=== PATIENT | female | born 1975 | race American Indian/Alaskan Native ===

== ENCOUNTER 2018-12-28 07:02 | Emergency (ER) | payer OTHER ==
[2018-12-28 07:22] VITALS: BP 138/97
--- NOTE | 2018-12-28 09:41 | Emergency Department Report ---
HPI - General Chief Complaint: Upper Respiratory Infection Time Seen by Provider: 12/28/18 09:25 - HPI HPI: 43-year-old -Maldivian female presents to the emergency department with a 2 to three-day history of a mixed dry and productive cough, body aches, chills. She also previously had some diarrhea that has since resolved. She says that she got sick when she returned from her visit to [facility] and she also "gave it to Juon." She has a past medical history of sarcoidosis. She's taken some intu-ter-xlaujri medications for her symptoms without much relief that include Robitussin and Radha Alva. She is an occasional tobacco smoker. ED Past Medical Hx - Past Medical History Previous Medical History?: Yes Hx Headaches / Migraines: Yes Additional medical history: Sarcoidosis - Surgical History Hx Cholecystectomy: Yes - Social History Smoking Status: Current Some Day Smoker Substance Use Type: Alcohol - Medications Home Medications: Home Medications Medication Instructions Recorded Confirmed Last Taken Type Butalb/Acetaminophen/Caffeine 1 cap PO Q6HR PRN #24 cap 12/12/18 Unknown Rx [Fioricet 50-300-40 mg CAP] ALBUTEROL Inhaler (OR & NICU) 2 puff IH QID PRN #1 inhalation 12/28/18 Unknown Rx [ProAir HFA Inhaler] Fluticasone [Flonase] 1 spray NS QDAY #1 bottle 12/28/18 Unknown Rx Pseudoephedrine ER [Sudafed 12 Hr] 120 mg PO BID #10 tablet.er 12/28/18 Unknown Rx ED Review of Systems ROS: Stated complaint: FLU SYMPTOMS Other details as noted in HPI Constitutional: chills. denies: fever Eyes: denies: eye pain, vision change ENT: congestion. denies: ear pain Respiratory: cough. denies: shortness of breath Cardiovascular: denies: chest pain, edema Gastrointestinal: nausea, diarrhea. denies: abdominal pain Genitourinary: denies: dysuria, discharge Musculoskeletal: myalgia. denies: joint swelling Skin: denies: rash, lesions Neurological: denies: weakness, numbness Physical Exam - Physical Exam Vital Signs: Vital Signs 12/28/18 07:17 Temperature 98.2 F Pulse Rate 97 H Respiratory 17 Rate Blood Pressure 138/97 O2 Sat by Pulse 98 Oximetry Physical Exam: GENERAL: The patient is well-developed well-nourished. HEENT: Normocephalic. Atraumatic. Patient has moist mucous membranes. Oropharynx is clear. Boggy nasal mucosa. EYES: Extraocular motions are intact. Pupils are equal and reactive to light bilaterally. NECK: Supple. Trachea is midline. CHEST/LUNGS: Clear to auscultation. Occasional productive sounding cough is heard during examination. No tachypnea or accessory muscle use. There is no respiratory distress noted. HEART/CARDIOVASCULAR: Regular. There is no tachycardia. There is no obvious murmur. ABDOMEN: Abdomen is soft, nontender. Patient has normal bowel sounds. There is no abdominal distention. SKIN: Skin is warm and dry. NEURO: The patient is awake, alert, and oriented. The patient is cooperative. The patient has no focal neurologic deficits. The patient has normal speech. MUSCULOSKELETAL: There is no tenderness or deformity. There is no evidence of acute injury. ED Course Vital Signs 12/28/18 07:17 Temperature 98.2 F Pulse Rate 97 H Respiratory 17 Rate Blood Pressure 138/97 O2 Sat by Pulse 98 Oximetry ED Medical Decision Making - Lab Data Result diagrams: 12/28/18 09:39 12/28/18 09:39 - Radiology Data Radiology results: image reviewed interpreted by me: Chest x-ray does not show any pneumothorax, pleural effusion, pneumonia or obvious focal consolidation. - Medical Decision Making This patient presents with a few days of a cough and some body aches. She has some questionable history of sarcoidosis. Chest x-ray did not show any pneumonia, pleural effusions, pneumothorax, focal consolidation, or any other acute process. Patient's labs are unremarkable for her CBC and metabolic panel. She was given a DuoNeb breathing treatment with great relief. Vital signs stable including being afebrile. It is possible that the patient could have underlying influenza but she is out of the window for Tamiflu treatment. Patient will be treated with Sudafed, Flonase and an albuterol inhaler. She has been given referrals for primary care. She will return to the ER with any worsening of her symptoms or any acute distress. - Differential Diagnosis viral URI, sarcoidosis, pneumonia, influenza Critical Care Time: No Critical care attestation.: If time is entered above; I have spent that time in minutes in the direct care of this critically ill patient, excluding procedure time. ED Disposition Clinical Impression: Upper respiratory infection Qualifiers: URI type: unspecified URI Qualified Code(s): J06.9 - Acute upper respiratory infection, unspecified Disposition: DC- TO HOME OR SELFCARE Is pt being admited?: No Condition: Stable Instructions: Upper Respiratory Infection (ED) Additional Instructions: Please follow up with a primary care physician in a few days. Return to the emergency Department with any worsening of your symptoms or any acute distress. Prescriptions: ALBUTEROL Inhaler (OR & NICU) [ProAir HFA Inhaler] 2 puff IH QID PRN #1 inhala tion PRN Reason: Shortness Of Breath Fluticasone [Flonase] 1 spray NS QDAY #1 bottle Pseudoephedrine ER [Sudafed 12 Hr] 120 mg PO BID #10 tablet.er Referrals: DIANDRA SPAULDING MD [Staff Physician] - 2-3 Days JUAN DIEGO VELASQUEZ DO [Staff Physician] - 2-3 Days Forms: Work/School Release Form(ED) Time of Disposition: 10:55
--- NOTE | 2018-12-28 10:05 | XRay Report ---
CHEST 2 VIEWS INDICATION: Cough. COMPARISON: None similar at this institution. FINDINGS: PA and lateral chest radiographs demonstrate normal cardiomediastinal silhouette. Clear lungs. Slight lower thoracic spine degenerative spurring. Probable cholecystectomy clips. CONCLUSION: No acute chest process, as described. Thank you for the opportunity to participate in this patient's care.
[2018-12-28 10:07] LABS: BUN/Creatinine Ratio 12; Blood Urea Nitrogen 7 mg/dL (7-17); Calcium 9.4 mg/dL (8.4-10.2); Hemolysis Index 1
[2018-12-28 10:13] LABS: Basophils % (Auto) 0.6 % (0.0-1.8); Eosinophils % (Auto) 0.8 % (0.0-4.3); Hematocrit 43.4 % (30.3-42.9); Hemoglobin 14.5 gm/dl (10.1-14.3); Lymphocytes # (Auto) 2.4 K/mm3 (1.2-5.4); Lymphocytes % (Auto) 49.7 % (13.4-35.0); Mean Corpuscular HGB Conc 33 % (30-34); Mean Corpuscular Volume 88 fl (79-97); Monocytes # (Auto) 0.4 K/mm3 (0.0-0.8); Monocytes % (Auto) 7.5 % (0.0-7.3); Platelet Count 282 K/mm3 (140-440); Red Blood Count 4.97 M/mm3 (3.65-5.03); Red Cell Distribution Width 13.7 % (13.2-15.2)
[2018-12-28] MEDS ORDERED: DUONEB *Not for PRN Use IH ONE (10:14)
[2018-12-28] MEDS ORDERED: DECADRON PO ONE (10:52)
== END 2018-12-28 11:38 | disposition home or self-care (01) ==
LOC: ED 07:02
DX: J06.9 Acute upper respiratory infection, unspecified (principal); F17.200 Nicotine dependence, unspecified, uncomplicated; G43.909 Migraine, unspecified, not intractable, without status migrainosus; M79.10 Myalgia, unspecified site; Z90.49 Acquired absence of other specified parts of digestive tract
CPT/HCPCS: 36415; 71046; 80048; 85025; 94640; 99284; J8540

== ENCOUNTER 2019-02-21 19:27 | Emergency (ER) | payer OTHER ==
--- NOTE | 2019-02-21 19:35 | Emergency Department Report ---
Blank Doc - Documentation Documentation: This is a 43-year-old female that presents with acute on chronic headache. Dayton chandler stated has history of migrane headaches and symptoms are similar. Denies worst headache or thunderclap headache. exam: Neuro exam within normal limits. no facial drooping. no one sided weak ness. This initial assessment/diagnostic orders/clinical plan/treatment(s) is/are subject to change based on patient's health status, clinical progression and re- assessment by fellow clinical providers in the ED. Further treatment and workup at subsequent clinical providers discretion. Patient/guardians urged not to elope from the ED as their condition may be serious if not clinically assessed and managed. Initial orders include: 1- Patient sent to [facility] for further evaluation and treatment
[2019-02-21] MEDS ORDERED: NACL 0.9% 1000 ML 1,000 ML IV ONE (21:43)
[2019-02-21] MEDS ORDERED: REGLAN IV STA (21:43)
[2019-02-21] MEDS ORDERED: BENADRYL IV STA (21:43)
[2019-02-21] MEDS ORDERED: TORADOL IV STA (21:43)
--- NOTE | 2019-02-21 22:02 | Emergency Department Report ---
ED Headache HPI - General Chief Complaint: Headache Stated Complaint: GUTHRIE Time Seen by Provider: 02/21/19 19:34 - History of Present Illness Quality: mild Head Injury Location: parietal Recent Head Trauma: frequent headaches, chronic headaches Modifying Factors: improves with: exposure to light Associated Symptoms: denies: fatigue, fever/chills, flushing, nausea/vomiting, nasal congestion, nasal drainage, sinus infection, stiff neck, vision changes Allergies/Adverse Reactions: Allergies No Known Allergies Allergy (Unverified 12/12/18 14:08) Home Medications: Ambulatory Orders Butalb/Acetaminophen/Caffeine [Fioricet 50-300-40 mg CAP] 1 cap PO Q6HR PRN #24 cap 12/12/18 ALBUTEROL Inhaler (OR & NICU) [ProAir HFA Inhaler] 2 puff IH QID PRN #1 inhalation 12/28/18 Fluticasone [Flonase] 1 spray NS QDAY #1 bottle 12/28/18 Pseudoephedrine ER [Sudafed 12 Hr] 120 mg PO BID #10 tablet.er 12/28/18 Butalb/Acetamin/Caff 50-325-40 [Fioricet] 1 each PO Q6HR PRN #20 tablet 02/22/19 ED Review of Systems ROS: Stated complaint: GUTHRIE Other details as noted in HPI Constitutional: denies: chills, fever Eyes: denies: eye pain, eye discharge, vision change ENT: denies: ear pain, throat pain Respiratory: denies: cough, shortness of breath, wheezing Cardiovascular: denies: chest pain, palpitations Endocrine: no symptoms reported Gastrointestinal: denies: abdominal pain, nausea, diarrhea Genitourinary: denies: urgency, dysuria, discharge Musculoskeletal: denies: back pain, joint swelling, arthralgia Skin: denies: rash, lesions Neurological: denies: headache, weakness, paresthesias Psychiatric: denies: anxiety, depression Hematological/Lymphatic: denies: easy bleeding, easy bruising ED Past Medical Hx - Past Medical History Previous Medical History?: Yes Hx Headaches / Migraines: Yes Additional medical history: Sarcoidosis - Surgical History Past Surgical History?: Yes Hx Cholecystectomy: Yes - Social History Smoking Status: Current Every Day Smoker Substance Use Type: Alcohol - Medications Home Medications: Home Medications Medication Instructions Recorded Confirmed Last Taken Type Butalb/Acetaminophen/Caffeine 1 cap PO Q6HR PRN #24 cap 12/12/18 Unknown Rx [Fioricet 50-300-40 mg CAP] ALBUTEROL Inhaler (OR & NICU) 2 puff IH QID PRN #1 inhalation 12/28/18 Unknown Rx [ProAir HFA Inhaler] Fluticasone [Flonase] 1 spray NS QDAY #1 bottle 12/28/18 Unknown Rx Pseudoephedrine ER [Sudafed 12 Hr] 120 mg PO BID #10 tablet.er 12/28/18 Unknown Rx Butalb/Acetamin/Caff 50-325-40 1 each PO Q6HR PRN #20 tablet 02/22/19 Unknown Rx [Fioricet] ED Physical Exam - General Limitations: No Limitations General appearance: alert, in no apparent distress - Head Head exam: Present: atraumatic, normocephalic - Eye Eye exam: Present: normal appearance, PERRL, EOMI, other (negative funduscopic examination). Absent: conjunctival injection, nystagmus, periorbital swelling Pupils: Present: normal accommodation - ENT ENT exam: Present: mucous membranes moist - Neck Neck exam: Present: normal inspection - Respiratory Respiratory exam: Present: normal lung sounds bilaterally. Absent: respiratory distress - Cardiovascular Cardiovascular Exam: Present: regular rate, normal rhythm. Absent: systolic murmur, diastolic murmur, rubs, gallop - GI/Abdominal GI/Abdominal exam: Present: soft, normal bowel sounds - Extremities Exam Extremities exam: Present: normal inspection - Back Exam Back exam: Present: normal inspection - Neurological Exam Neurological exam: Present: alert, oriented X3 - Psychiatric Psychiatric exam: Present: normal affect, normal mood - Skin Skin exam: Present: warm, dry, intact, normal color. Absent: rash ED Course Vital Signs 02/21/19 19:34 Temperature 98.8 F Pulse Rate 85 Respiratory 18 Rate Blood Pressure 139/93 O2 Sat by Pulse 100 Oximetry Critical care attestation.: If time is entered above; I have spent that time in minutes in the direct care of this critically ill patient, excluding procedure time. ED Disposition Clinical Impression: Cephalgia Disposition: - TO HOME OR SELFCARE Is pt being admited?: No Does the pt Need Aspirin: No Condition: Stable Instructions: Migraine Headache (ED), Acute Headache (ED) Prescriptions: Butalb/Acetamin/Caff 50-325-40 [Fioricet] 1 each PO Q6HR PRN #20 tablet PRN Reason: Headache Referrals: ANGEL LEY MD [Primary Care Provider] - 3-5 Days
[2019-02-22 00:28] VITALS: BP 131/68
== END 2019-02-22 00:26 | disposition home or self-care (01) ==
LOC: ED 19:27
DX: G43.909 Migraine, unspecified, not intractable, without status migrainosus (principal); F17.200 Nicotine dependence, unspecified, uncomplicated
CPT/HCPCS: 96374; 96375; 99283; J1200; J1885; J2765; J7030

== ENCOUNTER 2019-05-16 08:08 | Emergency (ER) | payer OTHER ==
[2019-05-16 08:17] VITALS: BP 158/88
[2019-05-16 08:43] LABS: Basophils % (Auto) 0.5 % (0.0-1.8); Eosinophils # (Auto) 0.1 K/mm3 (0.0-0.4); Eosinophils % (Auto) 1.1 % (0.0-4.3); Hematocrit 38.5 % (30.3-42.9); Hemoglobin 12.7 gm/dl (10.1-14.3); Lymphocytes # (Auto) 3.3 K/mm3 (1.2-5.4); Lymphocytes % (Auto) 48.7 % (13.4-35.0); Mean Corpuscular HGB Conc 33 % (30-34); Mean Corpuscular Volume 87 fl (79-97); Monocytes # (Auto) 0.3 K/mm3 (0.0-0.8); Monocytes % (Auto) 4.6 % (0.0-7.3); Platelet Count 292 K/mm3 (140-440); Red Blood Count 4.42 M/mm3 (3.65-5.03); Red Cell Distribution Width 14.3 % (13.2-15.2)
[2019-05-16 09:06] LABS: Alanine Aminotransferase 22 units/L (7-56); Albumin 3.9 g/dL (3.9-5); BUN/Creatinine Ratio 11; Blood Urea Nitrogen 8 mg/dL (7-17); Hemolysis Index 7
[2019-05-16] MEDS ORDERED: ZOFRAN ODT PO ONE (09:14)
--- NOTE | 2019-05-16 09:16 | Emergency Department Report ---
ED Headache HPI - General Chief Complaint: Headache Stated Complaint: HEADACHE Time Seen by Provider: 05/16/19 08:45 - History of Present Illness Initial Comments: This is a 43-year-old female with a history of migraine headaches 2 years who presents to ED complaining of some peripheral and frontal localize, throughout., 6 out of 10 intensity pain 3 days. Patient states that she just moved here from [place] and was taking Topamax for her headaches. She denies any trauma, injuries, fall, fever, blurred vision, vomiting or dizziness. Allergies/Adverse Reactions: Allergies No Known Allergies Allergy (Unverified 12/12/18 14:08) Home Medications: Ambulatory Orders Butalb/Acetaminophen/Caffeine [Fioricet 50-300-40 mg CAP] 1 cap PO Q6HR PRN #24 cap 12/12/18 ALBUTEROL Inhaler (OR & NICU) [ProAir HFA Inhaler] 2 puff IH QID PRN #1 inhalation 12/28/18 Fluticasone [Flonase] 1 spray NS QDAY #1 bottle 12/28/18 Pseudoephedrine ER [Sudafed 12 Hr] 120 mg PO BID #10 tablet.er 12/28/18 Butalb/Acetamin/Caff 50-325-40 [Fioricet] 1 each PO Q6HR PRN #20 tablet 02/22/19 Prochlorperazine [Compazine] 10 mg PO Q8HR #20 tablet 05/16/19 ED Review of Systems ROS: Stated complaint: HEADACHE Other details as noted in HPI Comment: All other systems reviewed and negative ED Past Medical Hx - Past Medical History Previous Medical History?: Yes Hx Headaches / Migraines: Yes Additional medical history: Sarcoidosis - Surgical History Past Surgical History?: Yes Hx Cholecystectomy: Yes Additional Surgical History: D&C - Social History Smoking Status: Current Every Day Smoker Substance Use Type: Alcohol, Marijuana - Medications Home Medications: Home Medications Medication Instructions Recorded Confirmed Last Taken Type Butalb/Acetaminophen/Caffeine 1 cap PO Q6HR PRN #24 cap 12/12/18 Unknown Rx [Fioricet 50-300-40 mg CAP] ALBUTEROL Inhaler (OR & NICU) 2 puff IH QID PRN #1 inhalation 12/28/18 Unknown Rx [ProAir HFA Inhaler] Fluticasone [Flonase] 1 spray NS QDAY #1 bottle 12/28/18 Unknown Rx Pseudoephedrine ER [Sudafed 12 Hr] 120 mg PO BID #10 tablet.er 12/28/18 Unknown Rx Butalb/Acetamin/Caff 50-325-40 1 each PO Q6HR PRN #20 tablet 02/22/19 Unknown Rx [Fioricet] Prochlorperazine [Compazine] 10 mg PO Q8HR #20 tablet 05/16/19 Unknown Rx ED Physical Exam - General Limitations: No Limitations General appearance: alert, in no apparent distress - Head Head exam: Present: atraumatic, normocephalic - Eye Eye exam: Present: normal appearance - ENT ENT exam: Present: mucous membranes moist - Neck Neck exam: Present: normal inspection - Respiratory Respiratory exam: Present: normal lung sounds bilaterally. Absent: respiratory distress - Cardiovascular Cardiovascular Exam: Present: regular rate, normal rhythm. Absent: systolic murmur, diastolic murmur, rubs, gallop - GI/Abdominal GI/Abdominal exam: Present: soft, normal bowel sounds - Extremities Exam Extremities exam: Present: normal inspection - Back Exam Back exam: Present: normal inspection - Neurological Exam Neurological exam: Present: alert, oriented X3, CN II-XII intact, normal gait - Expanded Neurological Exam Expanded Patient oriented to: Present: person, place, time Speech: Present: fluid speech Cerebellar function: Finger to Nose: Normal Best Eye Response (Farrar): (4) open spontaneously Best Motor Response (Farrar): (6) obeys commands Best Verbal Response (Catherine): (5) oriented Catherine Total: 15 - Psychiatric Psychiatric exam: Present: normal affect, normal mood - Skin Skin exam: Present: warm, dry, intact, normal color. Absent: rash ED Course Vital Signs 05/16/19 08:14 Temperature 98.6 F Pulse Rate 88 Respiratory 18 Rate Blood Pressure 158/88 O2 Sat by Pulse 99 Oximetry ED Medical Decision Making - Lab Data Result diagrams: 05/16/19 08:28 05/16/19 08:28 - Medical Decision Making This 43-year-old female presents to ED to migraine headache Patient has a two-year history of headaches. Patient states she used to take Topamax for headaches. Patient states she has been in [facility] for a year so she has not seen a primary care doctor for headaches. She moved from [place]. Patient has no neurological deficit. referrals given for neurology. Discussed with and or follow-up for management of chronic migraines. Vital signs are normal she is in acute distress his physician with instructions. Critical care attestation.: If time is entered above; I have spent that time in minutes in the direct care of this critically ill patient, excluding procedure time. ED Disposition Clinical Impression: Migraine headache with aura Disposition: TO HOME OR SELFCARE Is pt being admited?: No Does the pt Need Aspirin: No Condition: Stable Instructions: Migraine Headache (ED), Tension Headache (ED) Additional Instructions: Make sure to follow up with the primary care physician as discussed. Take all your medications as you've been prescribed. If you have any worsening symptoms or develop new symptoms please return to ED immediately. Prescriptions: Prochlorperazine [Compazine] 10 mg PO Q8HR #20 tablet Referrals: ANGEL LEY MD [Primary Care Provider] - 3-5 Days [facility] [Provider Group] - 3-5 Days [facility] [Provider Group] - 3-5 Days KARLA CHAIDEZ MD [Staff Physician] - 3-5 Days LASHON MCKINLEY MD [Referring] - 3-5 Days Forms: Accompanied Note, Work/School Release Form(ED) Time of Disposition: 09:59
[2019-05-16] MEDS ORDERED: COMPAZINE PO ONE (09:30)
== END 2019-05-16 10:15 | disposition home or self-care (01) ==
LOC: ED 08:08
DX: G43.009 Migraine without aura, not intractable, without status migrainosus (principal); F17.200 Nicotine dependence, unspecified, uncomplicated; F12.10 Cannabis abuse, uncomplicated; Z79.899 Other long term (current) drug therapy; Z90.49 Acquired absence of other specified parts of digestive tract
CPT/HCPCS: 36415; 80053; 85025; Q0162; Q0164

== ENCOUNTER 2019-08-09 13:45 | Emergency (ER) | payer OTHER ==
[2019-08-09 14:01] VITALS: BP 149/74
--- NOTE | 2019-08-09 14:01 | Event Note ---
ED Screening Note Date of service: 08/09/19 Time: 14:00 ED Screening Note: 43 y/o female comes for headache and muscle tension of her shoulder region. Recently received Flu vaccine. This initial assessment/diagnostic orders/clinical plan/treatment(s) is/are subject to change based on patients health status, clinical progression and re- assessment by fellow clinical providers in the ED. Further treatment and workup at subsequent clinical providers discretion. Patient/guardian urged not to elope from the ED as their condition may be serious if not clinically assessed and managed. Initial orders include:
[2019-08-09] MEDS ORDERED: diphenhydrAMINE 50 MG/ML VIAL IV ONE (15:33)
[2019-08-09] MEDS ORDERED: KETOROLAC 30 MG/1 ML INJ IV ONE (15:33)
[2019-08-09] MEDS ORDERED: SODIUM CHLORIDE 0.9% 1000 ML 1,000 ML IV ONE (15:33)
[2019-08-09] MEDS ORDERED: METOCLOPRAMIDE 10 MG/2 ML INJ IV ONE (15:33)
--- NOTE | 2019-08-09 15:33 | Emergency Department Report ---
ED Headache HPI - General Chief Complaint: Headache Stated Complaint: HEADACHE/SHOULDER/NECK PAIN Time Seen by Provider: 08/09/19 13:59 Source: patient Exam Limitations: no limitations - History of Present Illness Initial Comments: Patient reports migraine that was triggered after she got the influenza vaccination three days ago. She denies any recent head trauma, nasal discharge, neck stiffness, sick contact, fever, closed spaces or thunderclap Timing/Duration: waxing and waning Quality: moderate, throbbing Head Injury Location: global Recent Head Trauma: no recent headache/trauma, occasional headaches Modifying Factors: improves with: rest. worse with: exposure to light, immobilization, movement Associated Symptoms: denies symptoms. denies: confusion, fatigue, facial pain, fever/chills, flushing, loss of consciousness, nausea/vomiting, nasal congestion, nasal drainage, numbness in legs/feet, rash, seizures, sinus infection, stiff neck, vision changes, weakness Allergies/Adverse Reactions: Allergies No Known Allergies Allergy (Unverified 12/12/18 14:08) Home Medications: Ambulatory Orders Butalb/Acetaminophen/Caffeine [Fioricet 50-300-40 mg CAP] 1 cap PO Q6HR PRN #24 cap 12/12/18 ALBUTEROL Inhaler (OR & NICU) [ProAir HFA Inhaler] 2 puff IH QID PRN #1 inhalation 12/28/18 Fluticasone [Flonase] 1 spray NS QDAY #1 bottle 12/28/18 Pseudoephedrine ER [Sudafed 12 Hr] 120 mg PO BID #10 tablet.er 12/28/18 Butalb/Acetamin/Caff 50-325-40 [Fioricet] 1 each PO Q6HR PRN #20 tablet 02/22/19 Prochlorperazine [Compazine] 10 mg PO Q8HR #20 tablet 05/16/19 Butalb/Acetaminophen/Caffeine [Fioricet 50-300-40 mg CAP] 1 cap PO Q6HR PRN #24 cap 08/09/19 Ondansetron [Zofran Odt] 4 mg PO Q8HR #9 tab.rapdis 08/09/19 ED Review of Systems ROS: Stated complaint: HEADACHE/SHOULDER/NECK PAIN Other details as noted in HPI Constitutional: denies: chills, fever Eyes: denies: eye pain, eye discharge, vision change ENT: denies: ear pain, throat pain, hearing loss, epistaxis, congestion Respiratory: denies: cough, orthopnea, shortness of breath, SOB with exertion, SOB at rest, stridor, wheezing Cardiovascular: denies: chest pain, palpitations Endocrine: no symptoms reported Gastrointestinal: denies: abdominal pain, nausea, vomiting, diarrhea, constipation, hematemesis, melena Genitourinary: denies: urgency, dysuria, discharge Musculoskeletal: denies: back pain, joint swelling, arthralgia Skin: denies: rash, lesions Neurological: headache. denies: weakness, paresthesias, confusion, abnormal gait, vertigo Psychiatric: denies: anxiety, depression Hematological/Lymphatic: denies: easy bleeding, easy bruising ED Past Medical Hx - Past Medical History Previous Medical History?: Yes Hx Headaches / Migraines: Yes Additional medical history: Sarcoidosis - Surgical History Past Surgical History?: Yes Hx Cholecystectomy: Yes Additional Surgical History: D&C - Social History Smoking Status: Current Some Day Smoker Substance Use Type: Alcohol, Marijuana - Medications Home Medications: Home Medications Medication Instructions Recorded Confirmed Last Taken Type Butalb/Acetaminophen/Caffeine 1 cap PO Q6HR PRN #24 cap 12/12/18 Unknown Rx [Fioricet 50-300-40 mg CAP] ALBUTEROL Inhaler (OR & NICU) 2 puff IH QID PRN #1 inhalation 12/28/18 Unknown Rx [ProAir HFA Inhaler] Fluticasone [Flonase] 1 spray NS QDAY #1 bottle 12/28/18 Unknown Rx Pseudoephedrine ER [Sudafed 12 Hr] 120 mg PO BID #10 tablet.er 12/28/18 Unknown Rx Butalb/Acetamin/Caff 50-325-40 1 each PO Q6HR PRN #20 tablet 02/22/19 Unknown Rx [Fioricet] Prochlorperazine [Compazine] 10 mg PO Q8HR #20 tablet 05/16/19 Unknown Rx Butalb/Acetaminophen/Caffeine 1 cap PO Q6HR PRN #24 cap 08/09/19 Unknown Rx [Fioricet 50-300-40 mg CAP] Ondansetron [Zofran Odt] 4 mg PO Q8HR #9 tab.rapdis 08/09/19 Unknown Rx ED Physical Exam - General Limitations: No Limitations General appearance: alert, in no apparent distress - Head Head exam: Present: atraumatic, normocephalic - Eye Eye exam: Present: normal appearance, PERRL, EOMI Pupils: Present: normal accommodation - ENT ENT exam: Present: normal orophraynx, mucous membranes moist - Neck Neck exam: Present: normal inspection, full ROM. Absent: tenderness, meningismus, lymphadenopathy, thyromegaly - Respiratory Respiratory exam: Present: normal lung sounds bilaterally. Absent: respiratory distress, wheezes, rales, rhonchi, stridor, chest wall tenderness, accessory muscle use, decreased breath sounds, prolonged expiratory - Cardiovascular Cardiovascular Exam: Present: regular rate, normal rhythm, normal heart sounds. Absent: systolic murmur, diastolic murmur, rubs, gallop - Back Exam Back exam: Present: normal inspection, full ROM. Absent: tenderness, CVA tenderness (R), CVA tenderness (L), muscle spasm, paraspinal tenderness, vertebral tenderness, rash noted - Neurological Exam Neurological exam: Present: alert, oriented X3, CN II-XII intact, normal gait, reflexes normal, other (no focal neuro deficits) - Psychiatric Psychiatric exam: Present: normal affect, normal mood - Skin Skin exam: Present: warm, dry, intact, normal color. Absent: rash ED Course Vital Signs 08/09/19 13:59 Temperature 98.6 F Pulse Rate 79 Respiratory 18 Rate Blood Pressure 149/74 O2 Sat by Pulse 98 Oximetry ED Medical Decision Making - Lab Data Vital Signs 08/09/19 13:59 Temperature 98.6 F Pulse Rate 79 Respiratory 18 Rate Blood Pressure 149/74 O2 Sat by Pulse 98 Oximetry - Medical Decision Making During the course of ED, all other systems were unremarkable except for documentation in HPI. Patient was given oral Toradol, Reglan and Benadryl. She refused intravenous fluids at this time. She was sent home with a prescription for Fiorcet and Zofran, instructed to follow up with her PCP, she verbalized understanding - Differential Diagnosis Migraine, Sinus Infection, URI Critical care attestation.: If time is entered above; I have spent that time in minutes in the direct care of this critically ill patient, excluding procedure time. ED Disposition Clinical Impression: Migraine Qualifiers: Migraine type: without aura Status migrainosus presence: without status migrainosus Intractability: not intractable Qualified Code(s): G43.009 - Migraine without aura, not intractable, without status migrainosus Disposition: DC- TO HOME OR SELFCARE Is pt being admited?: No Does the pt Need Aspirin: No Condition: Stable Instructions: Migraine Headache (ED) Additional Instructions: Take medication as directed. Follow up with PCP as needed Prescriptions: Butalb/Acetaminophen/Caffeine [Fioricet 50-300-40 mg CAP] 1 cap PO Q6HR PRN #24 cap PRN Reason: Migraine Headache Ondansetron [Zofran Odt] 4 mg PO Q8HR #9 tab.rapdis Referrals: ANGEL LEY MD [Primary Care Provider] - 3-5 Days Forms: Work/School Release Form(ED) Time of Disposition: 16:29
[2019-08-09] MEDS ORDERED: diphenhydrAMINE 25 MG CAP PO ONE (16:18)
[2019-08-09] MEDS ORDERED: KETOROLAC 10 MG TAB PO ONE (16:18)
[2019-08-09] MEDS ORDERED: METOCLOPRAMIDE 10 MG TAB PO ONE (16:18)
== END 2019-08-09 17:15 | disposition home or self-care (01) ==
LOC: ED 13:45
DX: G43.909 Migraine, unspecified, not intractable, without status migrainosus (principal); F17.200 Nicotine dependence, unspecified, uncomplicated; F12.10 Cannabis abuse, uncomplicated; Z79.899 Other long term (current) drug therapy; Z90.49 Acquired absence of other specified parts of digestive tract
CPT/HCPCS: 99282

== ENCOUNTER 2019-10-04 20:09 | Emergency (ER) | payer OTHER ==
--- NOTE | 2019-10-04 21:18 | Event Note ---
ED Screening Note ED Screening Note: hx of migraines has had a GUTHRIE for 4 days states she has been taking advil and excedrin migraine no vision changes +photophobia +nausea no vomiting no fever PMHx sarcoidosis no allergies to meds This initial assessment/diagnostic orders/clinical plan/treatment(s) is/are subject to change based on patients health status, clinical progression and re- assessment by fellow clinical providers in the ED. Further treatment and workup at subsequent clinical providers discretion. Patient/guardian urged not to elope from the ED as their condition may be serious if not clinically assessed and managed.
--- NOTE | 2019-10-04 23:37 | Emergency Department Report ---
ED Headache HPI - General Chief Complaint: Headache Stated Complaint: MIGRAINES Time Seen by Provider: 10/04/19 21:16 Source: patient Exam Limitations: no limitations - History of Present Illness Initial Comments: Patient is a 44-year-old -Filip[place] female with a history of chronic migraine headaches who presents to the ED with acute exacerbation of her chronic migraine headache with intermittent nausea and vomiting for the last 4 days. Patient states that she is been taking her regular migraine headache medications which include Aleve and Excedrin Migraine with no relief. Patient states that her headache is typical of her chronic migraine headache exacerbations and it is not the worst headache of her life. Patient also states that she did not go to work yesterday but money to go to work today but left early because of worsening headache. Patient states that while waiting in the ED she had additional Aleve and Excedrin tablets which she took and now her headache has resolved. Patient denies dizziness, change in vision, neck pain, chest pain, shortness of breath, abdominal pain, diaphoresis, palpitations, syncope or seizures, fever, chills, sore throat, nasal and sinus congestion or cough. Timing/Duration: constant, waxing and waning, other (4 days) Quality: severe Head Injury Location: global Recent Head Trauma: no recent headache/trauma, chronic headaches Modifying Factors: improves with: medication Associated Symptoms: denies symptoms, nausea/vomiting. denies: confusion, fatigue, facial pain, fever/chills, flushing, loss of consciousness, nasal congestion, nasal drainage, numbness in legs/feet, seizures, sinus infection, stiff neck, vision changes Allergies/Adverse Reactions: Allergies No Known Allergies Allergy (Unverified 12/12/18 14:08) Home Medications: Ambulatory Orders Butalb/Acetaminophen/Caffeine [Fioricet 50-300-40 mg CAP] 1 cap PO Q6HR PRN #24 cap 12/12/18 ALBUTEROL Inhaler (OR & NICU) [ProAir HFA Inhaler] 2 puff IH QID PRN #1 inhalation 12/28/18 Fluticasone [Flonase] 1 spray NS QDAY #1 bottle 12/28/18 Pseudoephedrine ER [Sudafed 12 Hr] 120 mg PO BID #10 tablet.er 12/28/18 Butalb/Acetamin/Caff 50-325-40 [Fioricet] 1 each PO Q6HR PRN #20 tablet 02/22/19 Prochlorperazine [Compazine] 10 mg PO Q8HR #20 tablet 05/16/19 Butalb/Acetaminophen/Caffeine [Fioricet 50-300-40 mg CAP] 1 cap PO Q6HR PRN #24 cap 08/09/19 Ondansetron [Zofran Odt] 4 mg PO Q8HR #9 tab.rapdis 08/09/19 Promethazine [Phenergan] 25 mg PO Q6HR PRN #24 tab 10/04/19 ED Review of Systems ROS: Stated complaint: MIGRAINES Other details as noted in HPI Constitutional: denies: chills, fever Eyes: denies: eye pain, eye discharge, vision change ENT: denies: ear pain, throat pain Respiratory: denies: cough, shortness of breath, wheezing Cardiovascular: denies: chest pain, palpitations, syncope, paroxysmal nocturnal dyspnea Endocrine: no symptoms reported Gastrointestinal: nausea, vomiting. denies: abdominal pain, diarrhea Genitourinary: denies: urgency, dysuria, frequency, hematuria, discharge Musculoskeletal: denies: back pain, joint swelling, arthralgia Skin: denies: rash, lesions Neurological: headache. denies: weakness, paresthesias Psychiatric: denies: anxiety, depression Hematological/Lymphatic: denies: easy bleeding, easy bruising ED Past Medical Hx - Past Medical History Previous Medical History?: Yes Hx Headaches / Migraines: Yes Additional medical history: Sarcoidosis - Surgical History Past Surgical History?: Yes Hx Cholecystectomy: Yes Additional Surgical History: D&C - Social History Smoking Status: Current Some Day Smoker Substance Use Type: None - Medications Home Medications: Home Medications Medication Instructions Recorded Confirmed Last Taken Type Butalb/Acetaminophen/Caffeine 1 cap PO Q6HR PRN #24 cap 12/12/18 Unknown Rx [Fioricet 50-300-40 mg CAP] ALBUTEROL Inhaler (OR & NICU) 2 puff IH QID PRN #1 inhalation 12/28/18 Unknown Rx [ProAir HFA Inhaler] Fluticasone [Flonase] 1 spray NS QDAY #1 bottle 12/28/18 Unknown Rx Pseudoephedrine ER [Sudafed 12 Hr] 120 mg PO BID #10 tablet.er 12/28/18 Unknown Rx Butalb/Acetamin/Caff 50-325-40 1 each PO Q6HR PRN #20 tablet 02/22/19 Unknown Rx [Fioricet] Prochlorperazine [Compazine] 10 mg PO Q8HR #20 tablet 05/16/19 Unknown Rx Butalb/Acetaminophen/Caffeine 1 cap PO Q6HR PRN #24 cap 08/09/19 Unknown Rx [Fioricet 50-300-40 mg CAP] Ondansetron [Zofran Odt] 4 mg PO Q8HR #9 tab.rapdis 08/09/19 Unknown Rx Promethazine [Phenergan] 25 mg PO Q6HR PRN #24 tab 10/04/19 Unknown Rx ED Physical Exam - General Limitations: No Limitations General appearance: alert, in no apparent distress - Head Head exam: Present: atraumatic, normocephalic, normal inspection - Eye Eye exam: Present: normal appearance, PERRL, EOMI Pupils: Present: normal accommodation - ENT ENT exam: Present: normal exam, normal orophraynx, mucous membranes moist, TM's normal bilaterally, normal external ear exam - Neck Neck exam: Present: normal inspection, full ROM - Respiratory Respiratory exam: Present: normal lung sounds bilaterally. Absent: respiratory distress, wheezes, rales, rhonchi, chest wall tenderness, accessory muscle use, decreased breath sounds - Cardiovascular Cardiovascular Exam: Present: regular rate, normal rhythm, normal heart sounds. Absent: systolic murmur, diastolic murmur, rubs, gallop - GI/Abdominal GI/Abdominal exam: Present: soft, normal bowel sounds. Absent: tenderness, guarding, hyperactive bowel sounds, hypoactive bowel sounds - Extremities Exam Extremities exam: Present: normal inspection, full ROM, normal capillary refill - Back Exam Back exam: Present: normal inspection, full ROM. Absent: tenderness, CVA tenderness (R), muscle spasm, paraspinal tenderness, vertebral tenderness - Neurological Exam Neurological exam: Present: alert, oriented X3, CN II-XII intact, normal gait, reflexes normal - Psychiatric Psychiatric exam: Present: normal affect, normal mood - Skin Skin exam: Present: warm, dry, intact, normal color. Absent: rash ED Course Vital Signs 10/04/19 20:21 Temperature 98.7 F Pulse Rate 77 Respiratory 16 Rate Blood Pressure 149/96 O2 Sat by Pulse 98 Oximetry ED Medical Decision Making - Medical Decision Making This is a 44-year-old female with a history of chronic migraine headaches and takes Excedrin with Aleve at home whenever she gets migraine headache exacerbations. The patient presented to the ED with intractable migraine headache with nausea and vomiting for 4 days despite taking the medications at home. In the ED, patient is alert and oriented 3 and is in no acute distress. Patient states that she ended up taking additional Aleve and Excedrin Migraine headache medication that she had in her purse and at the time of the physical examination reevaluation, patient's headache had resolved. Patient therefore asked to be discharged home with antiemetics since she really has had regular medications at home for migraine headaches. Patient's vital signs are stable and the patient has no neurological signs or symptoms. Patient was discharged home on antiemetics Phenergan and advised to follow-up with her primary care physician in 5-7 days for reevaluation. Patient was advised to return to the ED immediately if symptoms get worse. - Differential Diagnosis migraine headache; nausea, vomiting; dehydration; cervicalgia Critical care attestation.: If time is entered above; I have spent that time in minutes in the direct care of this critically ill patient, excluding procedure time. ED Disposition Clinical Impression: Nausea and vomiting in adult Chronic migraine without aura Qualifiers: Status migrainosus presence: without status migrainosus Intractability: not intractable Qualified Code(s): G43.709 - Chronic migraine without aura, not intractable, without status migrainosus Disposition: DC-01 TO HOME OR SELFCARE Is pt being admited?: No Does the pt Need Aspirin: No Condition: Stable Instructions: Migraine Headache (ED), Acute Nausea and Vomiting (ED) Additional Instructions: Taking her regular medications for pain, as well as antiemetics and follow-up with your primary care physician in 5-7 days for reevaluation. Return to the ED immediately if symptoms get worse. Prescriptions: Promethazine [Phenergan] 25 mg PO Q6HR PRN #24 tab PRN Reason: Nausea Referrals: ANGEL LEY MD [Primary Care Provider] - 3-5 Days Forms: Work/School Release Form(ED) Time of Disposition: 23:35 Print Language: WELSH
[2019-10-04 23:53] VITALS: BP 148/92
== END 2019-10-04 23:46 | disposition home or self-care (01) ==
LOC: ED 20:09
DX: G43.709 Chronic migraine without aura, not intractable, without status migrainosus (principal); R11.2 Nausea with vomiting, unspecified; D86.9 Sarcoidosis, unspecified; F17.200 Nicotine dependence, unspecified, uncomplicated; Z79.899 Other long term (current) drug therapy; Z90.49 Acquired absence of other specified parts of digestive tract; Z98.890 Other specified postprocedural states
CPT/HCPCS: 99282

== ENCOUNTER 2019-12-11 17:45 | Emergency (ER) | payer OTHER ==
[2019-12-11 17:53] VITALS: BP 152/92
--- NOTE | 2019-12-11 18:17 | Emergency Department Report ---
Blank Doc - Documentation Documentation: 44-year-old female that presents with URI symptoms with history of sarcoidosis. This initial assessment/diagnostic orders/clinical plan/treatment(s) is/are subject to change based on patient's health status, clinical progression and re- assessment by fellow clinical providers in the ED. Further treatment and workup at subsequent clinical providers discretion. Patient/guardians urged not to elope from the ED as their condition may be serious if not clinically assessed and managed. Initial orders include: 1- Patient sent to [facility] for further evaluation and treatment 2- CXR
--- NOTE | 2019-12-11 19:47 | XRay Report ---
CHEST 2 VIEWS INDICATION / CLINICAL INFORMATION: cough. COMPARISON: None readily available. FINDINGS: SUPPORT DEVICES: None. HEART / MEDIASTINUM: No significant abnormality. LUNGS / PLEURA: No significant pulmonary or pleural abnormality. No pneumothorax. ADDITIONAL FINDINGS: Previous cholecystectomy. IMPRESSION: No acute finding. Signer Name: Enmanuel Noyola MD Signed: 12/11/2019 7:43 PM Workstation Name: [id number]
--- NOTE | 2019-12-11 20:28 | Emergency Department Report ---
Chief Complaint: Upper Respiratory Infection Stated Complaint: FLU SYM Time Seen by Provider: 12/11/19 18:15 - HPI History of Present Illness: Patient is a 44-year-old female presents emergency room with complaints of cold symptoms that began 2 days ago. She has associated generalized body aches, congestion, dry cough, diarrhea, feeling warm. She denies any nausea, vomiting, abdominal pain, shortness of breath, chest pain, productive cough. She has a past medical history of sarcoidosis but has not had a flare since 2012 and does not take any medications for it currently because she has not had any issues. VSS afebrile, no tachycardia, normal oxygen saturation ROS: all systems reviewed and are negative except for as documented in HPI on exam: non toxic appearing, no acute distress, A&Ox4 moist mucus membranes atraumatic, normal cephalic normal nasal turbinates, no purulent drainage, normal TMs and canals bilaterally, normal oropharynx heart rate and rhythm are normal, no murmurs, no rubs, no gallops normal breath sounds bilaterally, no w/r/r skin is warm, dry, intact Symptoms and examination consistent with viral illness Unlikely to be influenza as patient is not having a fever no clinical signs of dehydration Chest x-ray with no acute process ordered prior to my examination Discussed symptomatic treatment and supportive care with patient Will refer patient to a primary care physician Discussed strict return precautions with patient Medical screening examination performed, there is no threat to life or limb at this time - Exam Vital Signs: Vital Signs 12/11/19 17:50 Temperature 98.5 F Pulse Rate 77 Respiratory 16 Rate Blood Pressure 152/92 O2 Sat by Pulse 98 Oximetry MSE screening note: Focused history and physical exam performed. ED Disposition for MSE Clinical Impression: Viral illness Disposition: Z-07 MED SCREENING EXAM-LEFT Is pt being admited?: No Does the pt Need Aspirin: No Condition: Stable Instructions: Viral Syndrome (ED) Additional Instructions: Please increase your fluid intake over the next several days. May take Mucinex during the day and TheraFlu nighttime at night. May take ibuprofen or Tylenol for body aches. Follow-up with your primary care doctor in the next 2 to 3 days for reexamination. Return to the emergency room for any new or worsening symptoms. Referrals: RAY FITZPATRICK MD [Staff Physician] - 2-3 Days [facility] [Outside] - 2-3 Days [facility] [Provider Group] - 2-3 Days [facility] [Outside] - 2-3 Days Time of Disposition: 20:28 Print Language: SOMALI
== END 2019-12-11 20:32 | disposition left against medical advice (07) ==
LOC: ED 17:45
DX: B34.9 Viral infection, unspecified (principal)
CPT/HCPCS: 71046; 99283